=== PATIENT | male | born 1950 | race Caucasian/White ===

== ENCOUNTER → 2019-08-15 | Outpatient (CLI) | payer MEDICARE, OTHER ==
[~2019-08-15] MED LIST: CATHETER FLUSH 10 ML SYR IV PRN; HOLD METFORMIN - RECEIVED CONTRAST 20 ML VIAL IV SCH; IOHEXOL 350 MG/ML 100 ML (OMNIPAQUE 350) VIAL IV ONE; NS 100 ML (IVPB) BAG IV ONE
--- NOTE | 2019-08-15 16:07 | Diagnostic Imaging Report ---
PROCEDURE: CT abdomen with and without contrast. TECHNIQUE: Multiple contiguous axial CT images of the abdomen were obtained prior to and after intravenous administration of iodinated contrast. Auto Exposure Controls were utilized during the CT exam to meet ALARA standards for radiation dose reduction. INDICATION: Right renal mass noted on outside ultrasound. COMPARISON: Patient's outside study is not available for direct comparison. FINDINGS: Lung bases demonstrate tiny nodules in bilateral lower lobes. Subpleural nodule in right lower lobe measures 9 mm. Imaging to liver shows a tiny low density in the dome of the liver measuring 7 mm. This is too small to characterize. The gallbladder is unremarkable. No biliary ductal dilatation is seen. The pancreas and spleen are unremarkable. No adrenal mass is identified. There is a solid mixed density mass involving the posterior aspect of the right kidney at the lower pole measuring 4.6 cm AP x 4.2 cm transverse x 4.2 cm cephalocaudal. This does demonstrate contrast enhancement and is consistent with renal cell carcinoma till proven otherwise. A simple-appearing cyst just lateral and slightly cephalad to this in the right kidney is noted measuring 2.7 cm. Small probable cyst in lower pole of left kidney is noted. No definite tumor invasion into the renal vein or IVC is identified. No central retroperitoneal or mesenteric lymphadenopathy is detected. Small and large bowel loops are normal caliber. There is no ascites. No osteolytic lesions are seen. IMPRESSION: 1. Solid right lower pole renal mass consistent with renal cell carcinoma till proven otherwise. No abdominal lymphadenopathy is detected. Note is made of subcentimeter nodules in both lung bases, indeterminate. Pulmonary metastatic disease cannot be entirely excluded. 2. Probable hepatic and bilateral renal cysts. Dictated by: Dictated on workstation # [id number]
== END ==
LOC: RAD FS 14:44
PROVIDERS: ATTEND Family Medicine
DX: N28.1 Cyst of kidney, acquired (principal)
CPT/HCPCS: 74170